=== PATIENT | female | born 1935 | race Hispanic/Latino ===

== ENCOUNTER → 2022-12-08 | Outpatient (CLI) | payer OTHER, MEDICARE | END | disposition home or self-care (01) | LOC: RAH 10:45 | PROVIDERS: ATTEND Internal Medicine | DX: H92.03 Otalgia, bilateral (principal); R51.9 Headache, unspecified | CPT/HCPCS: 70450 ==

== ENCOUNTER 2024-06-08 22:57 | Inpatient (IN) | payer OTHER, MEDICARE ==
[~2024-06-08] VITALS: Ht 152.4 cm; Wt 54.1 kg
[~2024-06-08 22:57] MED LIST: ACET-66 PO; OSEL75 PO
[2024-06-08] MEDS: Solu-medROL 125MG VIAL IVP ONE (23:02)
[2024-06-08] MEDS: DiphenhydrAMINE HCL 50 MG/ML VIAL IV ONE (23:02)
[2024-06-08] MEDS: FAMOTIDINE 20MG VIAL IV ONE (23:02)
[2024-06-08 23:10] LABS: BASOPHILS # (AUTO) 0.04 K/uL (0.00-0.20); BASOPHILS % (AUTO) 0.5 % (0.0-5.0); EOSINOPHILS # (AUTO) 0.34 K/uL (0.00-0.70); EOSINOPHILS % (AUTO) 3.9 % (0.0-8.0); HEMATOCRIT 37.7 % (36-48); IMMATURE GRANULOCYTE ABSOLUTE 0.03 K/uL (0-1); LYMPHOCYTES # (AUTO) 1.9 K/uL (1.0-4.8); LYMPHOCYTES % (AUTO) 21.3 % (21.0-51.0); MEAN CORPUSCULAR HEMOGLOBIN 30.3 pg (27.0-33.0); MEAN CORPUSCULAR HGB CONC 32.4 g/dL (32.0-36.0); MEAN CORPUSCULAR VOLUME 93.8 fL (79-99); MONOCYTES # (AUTO) 0.7 K/uL (0.1-1.0); MONOCYTES % (AUTO) 7.8 % (3.0-13.0); NEUTROPHILS # (AUTO) 5.9 K/uL (1.8-7.7); NEUTROPHILS % (AUTO) 66.2 % (40.0-77.0); PLATELET COUNT (AUTO) 411 K/uL (130-400); RED BLOOD CELL COUNT(AUTO) 4.02 MIL/uL (4.00-5.50); RED CELL DISTRIBUTION WIDTH 14.6 % (11.0-15.5); WHITE BLOOD COUNT (AUTO) 8.8 K/uL (4.8-10.8)
[2024-06-08] MEDS: 0.9%NACL 1000ML 1,000 ML IV ONE (23:11)
[2024-06-08] MEDS: ETOMIDATE 20MG VIAL IVP ONE (23:14)
[2024-06-08] MEDS: proPOFol 10 MG/ML 20ML VIAL IV ONE (23:15)
[2024-06-08] MEDS: SUCCINYLCHOLINE 200MG/10ML SYR IVP ONE (23:16)
[2024-06-08 23:21] LABS: CREATININE 0.9 mg/dL (0.5-1.0); POTASSIUM 4.5 mmol/L (3.5-5.1)
[2024-06-08 23:22] LABS: INR 1.03 (0.85-1.15); PROTHROMBIN TIME 11.1 SEC (9.6-11.6)
[2024-06-08 23:23] LABS: PARTIAL THROMBOPLASTIN TIME 27.1 SEC (26.3-35.5)
[2024-06-08 23:26] LABS: ALBUMIN 3.2 g/dL (3.5-5.0); BILIRUBIN,TOTAL 0.4 mg/dL (0.2-1.0)
[2024-06-08 23:27] VITALS: PULSE 73; O2SAT 98
[2024-06-08] MEDS ORDERED: proPOFol 1000 MG/100 ML IV PRN (23:30)
[2024-06-08 23:46] LABS: B-TYPE NATRIURETIC PEPTIDE 65 pg/mL (0-100)
[2024-06-09] VITALS (96 sets, daily range): BP systolic 91–153; BP diastolic 36–79; PULSE 71–105; RESP 10–19; TEMP 97.2–99.2; O2SAT 100
[2024-06-09] MEDS ORDERED: acetaMINOPHEN 650 MG SUPPOSITORY RC PRN
[2024-06-09] MEDS ORDERED: LACTULOSE 20 GM/30 ML UDCUP PO PRN
[2024-06-09] MEDS ORDERED: doCUSate SODIUM 100 MG CAP PO PRN
[2024-06-09] MEDS ORDERED: ALBUTEROL 0.083% 2.5 MG/3 ML INH IH PRN
[2024-06-09] MEDS ORDERED: hydrALAZine 20MG/ML VIAL IV PRN
[2024-06-09] MEDS ORDERED: ondanSETRON 4MG INJ IVP PRN
[2024-06-09] MEDS ORDERED: acetaMINOPHEN 325 MG TAB PO PRN
[2024-06-09] MEDS ORDERED: IpraTROPium 0.5 MG/2.5 ML INH IH PRN
[2024-06-09 00:07] LABS: APPEARANCE,URINE CLEAR (CLEAR); BILIRUBIN,URINE NEGATIVE (NEGATIVE); COLOR,URINE COLORLESS (YELLOW); GLUCOSE, URINE (UA) >=1000 mg/dL (NEGATIVE); KETONES,URINE NEGATIVE (NEGATIVE); LEUKOCYTE ESTERASE ,URINE NEGATIVE Leu/uL (NEGATIVE); NITRATE,URINE NEGATIVE (NEGATIVE); OCCULT BLOOD,URINE NEGATIVE (NEGATIVE); PROTEIN,URINE NEGATIVE (NEGATIVE); UROBILINOGEN,URINE 0.2 mg/dL (0.2-1.0)
[2024-06-09 00:08] LABS: ADD UA MICROSCOPIC YES
[2024-06-09 00:09] LABS: BACTERIA,URINE RARE /HPF (None Seen); WBC,URINE 0-1 /HPF (0-1)
[2024-06-09] MEDS: DiphenhydrAMINE HCL 50 MG/ML VIAL ONE (00:10)
[2024-06-09] MEDS: proPOFol 10 MG/ML 20ML VIAL IV ONE (00:10)
[2024-06-09] MEDS: proPOFol 1000 MG/100 ML 100 ML IV ONE (00:10)
[2024-06-09] MEDS: Solu-medROL 125MG VIAL ONE (00:10)
[2024-06-09] MEDS: FENTanyl 1000MCG+NS 100ML 100 ML IV ONE (00:24)
[2024-06-09] MEDS: proPOFol 1000 MG/100 ML 100 ML IV SCH (00:25)
[2024-06-09] MEDS: FENTanyl 1000MCG+NS 100ML 100 ML IV SCH (00:26)
[2024-06-09] MEDS: 0.9%NACL 1000ML 1,000 ML IV SCH ×2 (00:57→20:51)
[2024-06-09] MEDS: EPINEPHrine PF 1MG (1:1,000) 1 MG/ML AMP ONE (00:58)
[2024-06-09 01:27] LABS: ABG BASE EXCESS -9.6 mmol/L (-2.0-3.0); ABG HCO3 17.1 mmol/L (21.0-28.0); ABG OXYGEN SATURATION 98.3 % (94.0-98.0); ABG PCO2 40 mmHg (32-45); ABG PH 7.246 (7.350-7.450); CARBON MONOXIDE 0.3 % (0.5-1.5); HHb 1.7; PO2, ARTERIAL BG 152.9 mmHg (83.0-108.0); VENT MODE, BG ACVC (ROOM AIR)
[2024-06-09] MEDS ORDERED: CLOP75TA32 PO (03:15)
[2024-06-09] MEDS ORDERED: SITA100T12 PO (03:15)
[2024-06-09] MEDS ORDERED: RALO60TA13 PO (03:15)
[2024-06-09] MEDS ORDERED: LISI20TA24 PO (03:15)
[2024-06-09] MEDS ORDERED: DAPA10TA PO (03:15)
[2024-06-09] MEDS ORDERED: METF-444 PO (03:15)
[2024-06-09] MEDS ORDERED: AMLO-257 PO (03:15)
[2024-06-09] MEDS ORDERED: MELO-108 PO (03:15)
[2024-06-09] MEDS ORDERED: SIMV40TA59 PO (03:15)
[2024-06-09] MEDS ORDERED: FAMO40TA7 PO (03:15)
[2024-06-09 04:39] LABS: ABG BASE EXCESS -14.5 mmol/L (-2.0-3.0); ABG HCO3 16.8 mmol/L (21.0-28.0); ABG OXYGEN SATURATION 97.1 % (94.0-98.0); ABG PCO2 63 mmHg (32-45); ABG PH 7.046 (7.350-7.450); DEVICE COMMENT LR; PO2, ARTERIAL BG 130.8 mmHg (83.0-108.0); VENT MODE, BG AC (ROOM AIR)
[2024-06-09] MEDS: VASOpressin 20 UNITS/ML 1ML Vi 20 UNITS in 0.9%NACL 100ML 99 ML IV PRN (06:47)
[2024-06-09] MEDS: INSULIN GLARgine 100 UNITS/ML 10 ML VIAL SQ SCH ×2 (07:00→08:42)
[2024-06-09] MEDS: INSULIN humuLIN R 100 UNIT/ML 3ML SQ SCH (07:00)
[2024-06-09 07:04] LABS: ABG HCO3 13.7 mmol/L (21.0-28.0); ABG OXYGEN SATURATION 96.8 % (94.0-98.0); ABG PCO2 42 mmHg (32-45); ABG PH 7.129 (7.350-7.450); DEVICE COMMENT LRRAQUEL; PO2, ARTERIAL BG 114.4 mmHg (83.0-108.0); VENT MODE, BG AC (ROOM AIR)
[2024-06-09] MEDS ORDERED: INSULIN humuLIN R 100 UNIT/ML 3ML SQ SCH (07:30)
[2024-06-09 07:39] LABS: HEMATOCRIT 30.8 % (36-48); MEAN CORPUSCULAR HEMOGLOBIN 30.6 pg (27.0-33.0); MEAN CORPUSCULAR HGB CONC 30.8 g/dL (32.0-36.0); MEAN CORPUSCULAR VOLUME 99.4 fL (79-99); PLATELET COUNT (AUTO) 439 K/uL (130-400); RED CELL DISTRIBUTION WIDTH 14.9 % (11.0-15.5); WHITE BLOOD COUNT (AUTO) 14.5 K/uL (4.8-10.8)
[2024-06-09 08:17] LABS: HEMOGLOBIN A1C 7.9 % (4.0-6.0)
[2024-06-09 08:18] LABS: BASOPHILS # (AUTO) 0.03 K/uL (0.00-0.20); BASOPHILS % (AUTO) 0.2 % (0.0-5.0); EOSINOPHILS # (AUTO) 0.02 K/uL (0.00-0.70); EOSINOPHILS % (AUTO) 0.1 % (0.0-8.0); IMMATURE GRANULOCYTE ABSOLUTE 0.16 K/uL (0-1); LYMPHOCYTES # (AUTO) 1.1 K/uL (1.0-4.8); LYMPHOCYTES % (AUTO) 7.9 % (21.0-51.0); MONOCYTES # (AUTO) 0.4 K/uL (0.1-1.0); MONOCYTES % (AUTO) 2.9 % (3.0-13.0); NEUTROPHILS # (AUTO) 12.3 K/uL (1.8-7.7); NEUTROPHILS % (AUTO) 87.8 % (40.0-77.0)
[2024-06-09] MEDS: LACTATED RINGERS 1000ML IV ONE (08:34)
[2024-06-09 08:35] LABS: CREATININE 1.1 mg/dL (0.5-1.0); PHOSPHORUS 5.7 mg/dL (2.5-4.9); POTASSIUM 4.8 mmol/L (3.5-5.1); THYROID STIMULATING HORMONE 1.77 uIU/mL (0.36-3.74)
[2024-06-09] MEDS: SODIUM BICARB 50MEQ 50ML VIAL IV ONE (08:35)
[2024-06-09] MEDS: FAMOTIDINE 20MG VIAL IV SCH (08:40)
[2024-06-09] MEDS: cloPIDOgrel 75MG TAB PO SCH (08:40)
[2024-06-09] MEDS: Solu-medROL 40MG VIAL IVP SCH (08:40)
[2024-06-09] MEDS: ENOXAPARIN SODIUM 40 MG/0.4 ML SYRINGE SQ SCH (08:42)
[2024-06-09 08:45] LABS: MAGNESIUM 1.6 mg/dL (1.80-2.40)
[2024-06-09] MEDS: DiphenhydrAMINE HCL 50 MG/ML VIAL IVP SCH (08:46)
[2024-06-09] MEDS: CHLORHEXIDINE GLUCONATE 15 ML MOUTHWASH MM SCH (08:46)
[2024-06-09] MEDS: polyETHYLene GLYCol 3350 17 GM POWD.PACK PO SCH (08:46)
[2024-06-09] MEDS ORDERED: PoTASSium chloRIDE 10MEQ/100ML 100 ML IV PRN (09:00)
[2024-06-09] MEDS ORDERED: 0.9%NACL 1000ML 1,000 ML IV SCH (09:00)
[2024-06-09] MEDS ORDERED: Solu-medROL 125MG VIAL IVP SCH (09:00)
[2024-06-09] MEDS ORDERED: D5W-1/2 NS/20MEQ KCL 1,000 ML IV SCH (09:00)
[2024-06-09] MEDS ORDERED: FAMOTIDINE 20MG VIAL IV SCH (09:00)
[2024-06-09 09:08] LABS: ALBUMIN 2.7 g/dL (3.5-5.0); BILIRUBIN,DIRECT 0.7 mg/dL (0.0-0.3); BILIRUBIN,TOTAL 0.9 mg/dL (0.2-1.0); TOTAL PROTEIN, SERUM 6.4 g/dL (6.0-8.3)
[2024-06-09] MEDS ORDERED: MAGNESIUM 2GM PREMIX 50ML 50 ML IV SCH (10:00)
[2024-06-09] MEDS: INSULIN REGULAR, HUMAN 3ML 100 UNIT in 0.9%NACL 100ML 100 ML IV SCH (10:18)
[2024-06-09] MEDS: MAGNESIUM 2GM PREMIX 50ML 50 ML IV SCH (11:14)
[2024-06-09] MEDS: ARTIFICAL TEARS SOL 15 ML OU SCH (12:30)
[2024-06-09 13:23] LABS: CREATININE 1.1 mg/dL (0.5-1.0)
[2024-06-09 17:19] LABS: POTASSIUM 3.8 mmol/L (3.5-5.1)
[2024-06-09] MEDS: DOXYCYCLINE 100MG+NS 250ML 250 ML IV SCH (20:50)
[2024-06-09] MEDS: simVASTatin 20 MG TABLET PO SCH (20:50)
[2024-06-09] MEDS: ZOSYN 3.375GM +NS 50ML IV SCH (20:50)
[2024-06-10] VITALS (71 sets, daily range): BP systolic 104–188; BP diastolic 47–100; PULSE 71–120; RESP 12–128; TEMP 98.6–99.5; O2SAT 95–100
[2024-06-10 03:39] LABS: ABG BASE EXCESS -4.1 mmol/L (-2.0-3.0); ABG HCO3 20.2 mmol/L (21.0-28.0); ABG OXYGEN SATURATION 98.7 % (94.0-98.0); ABG PCO2 35 mmHg (32-45); ABG PH 7.381 (7.350-7.450); DEVICE COMMENT RR RN MARISSA; PO2, ARTERIAL BG 135.4 mmHg (83.0-108.0); VENT MODE, BG ACVC (ROOM AIR)
[2024-06-10 03:55] LABS: BASOPHILS # (AUTO) 0.02 K/uL (0.00-0.20); BASOPHILS % (AUTO) 0.1 % (0.0-5.0); HEMATOCRIT 30.7 % (36-48); IMMATURE GRANULOCYTE ABSOLUTE 0.18 K/uL (0-1); LYMPHOCYTES # (AUTO) 0.8 K/uL (1.0-4.8); LYMPHOCYTES % (AUTO) 3.5 % (21.0-51.0); MEAN CORPUSCULAR HEMOGLOBIN 30.7 pg (27.0-33.0); MEAN CORPUSCULAR HGB CONC 31.9 g/dL (32.0-36.0); MEAN CORPUSCULAR VOLUME 96.2 fL (79-99); MONOCYTES # (AUTO) 1.1 K/uL (0.1-1.0); MONOCYTES % (AUTO) 5.3 % (3.0-13.0); NEUTROPHILS # (AUTO) 19.1 K/uL (1.8-7.7); NEUTROPHILS % (AUTO) 90.2 % (40.0-77.0); PLATELET COUNT (AUTO) 352 K/uL (130-400); RED BLOOD CELL COUNT(AUTO) 3.19 MIL/uL (4.00-5.50); WHITE BLOOD COUNT (AUTO) 21.1 K/uL (4.8-10.8)
[2024-06-10 04:16] LABS: CREATININE 0.7 mg/dL (0.5-1.0); MAGNESIUM 2.2 mg/dL (1.80-2.40); PHOSPHORUS 3.4 mg/dL (2.5-4.9); POTASSIUM 4.3 mmol/L (3.5-5.1); THYROID STIMULATING HORMONE 0.72 uIU/mL (0.36-3.74)
[2024-06-10] MEDS: dexmedeTOMIDine 400MCG/NS100ML IV SCH (09:18)
[2024-06-10] MEDS: hydrALAZine 20MG/ML VIAL IV ONE (10:29)
[2024-06-10] MEDS: DEXTROSE 50%-WATER 50 ML DISP.SYRIN IV PRN (17:19)
[2024-06-10] MEDS ORDERED: GLUCAGON 1MG KIT 1 MG ML IM PRN (17:30)
[2024-06-10] MEDS: INSULIN humuLIN R 100 UNIT/ML 3ML SQ SCH (19:54)
[2024-06-10] MEDS: ZOLPidem TARTrate 5 MG TAB PO PRN (23:43)
[2024-06-11] VITALS (32 sets, daily range): BP systolic 121–161; BP diastolic 56–92; PULSE 56–85; RESP 11–27; TEMP 98.1–99.2; O2SAT 95–98
[2024-06-11 04:07] LABS: BASOPHILS # (AUTO) 0.01 K/uL (0.00-0.20); BASOPHILS % (AUTO) 0.1 % (0.0-5.0); HEMATOCRIT 29.2 % (36-48); IMMATURE GRANULOCYTE ABSOLUTE 0.21 K/uL (0-1); LYMPHOCYTES # (AUTO) 0.8 K/uL (1.0-4.8); LYMPHOCYTES % (AUTO) 4.6 % (21.0-51.0); MEAN CORPUSCULAR HEMOGLOBIN 29.6 pg (27.0-33.0); MEAN CORPUSCULAR HGB CONC 31.2 g/dL (32.0-36.0); MEAN CORPUSCULAR VOLUME 95.1 fL (79-99); MONOCYTES # (AUTO) 0.5 K/uL (0.1-1.0); MONOCYTES % (AUTO) 2.9 % (3.0-13.0); NEUTROPHILS # (AUTO) 15.5 K/uL (1.8-7.7); NEUTROPHILS % (AUTO) 91.2 % (40.0-77.0); PLATELET COUNT (AUTO) 270 K/uL (130-400); RED BLOOD CELL COUNT(AUTO) 3.07 MIL/uL (4.00-5.50); RED CELL DISTRIBUTION WIDTH 15.8 % (11.0-15.5)
[2024-06-11 04:18] LABS: CREATININE 0.6 mg/dL (0.5-1.0)
[2024-06-11] MEDS: Solu-medROL 40MG VIAL IVP SCH (08:39)
[2024-06-11] MEDS ORDERED: ZOLPidem TARTrate 5 MG TAB PO SCH (21:00)
[2024-06-12] VITALS: BP 127/65; PULSE 61; RESP 18; TEMP 98.3
[2024-06-12 00:06] VITALS: PULSE 75; RESP 18; O2SAT 96
[2024-06-12 04:00] VITALS: BP 119/55; PULSE 69; RESP 19; TEMP 98.1
[2024-06-12 05:23] LABS: BASOPHILS # (AUTO) 0.02 K/uL (0.00-0.20); BASOPHILS % (AUTO) 0.1 % (0.0-5.0); EOSINOPHILS # (AUTO) 0.01 K/uL (0.00-0.70); EOSINOPHILS % (AUTO) 0.1 % (0.0-8.0); HEMATOCRIT 30.7 % (36-48); IMMATURE GRANULOCYTE ABSOLUTE 0.14 K/uL (0-1); LYMPHOCYTES # (AUTO) 2.8 K/uL (1.0-4.8); LYMPHOCYTES % (AUTO) 16.6 % (21.0-51.0); MEAN CORPUSCULAR HEMOGLOBIN 30.5 pg (27.0-33.0); MEAN CORPUSCULAR HGB CONC 32.9 g/dL (32.0-36.0); MEAN CORPUSCULAR VOLUME 92.7 fL (79-99); MONOCYTES # (AUTO) 1.1 K/uL (0.1-1.0); MONOCYTES % (AUTO) 6.7 % (3.0-13.0); NEUTROPHILS # (AUTO) 12.7 K/uL (1.8-7.7); NEUTROPHILS % (AUTO) 75.7 % (40.0-77.0); PLATELET COUNT (AUTO) 324 K/uL (130-400); RED BLOOD CELL COUNT(AUTO) 3.31 MIL/uL (4.00-5.50); RED CELL DISTRIBUTION WIDTH 15.1 % (11.0-15.5); WHITE BLOOD COUNT (AUTO) 16.8 K/uL (4.8-10.8)
[2024-06-12 05:26] LABS: CREATININE 0.6 mg/dL (0.5-1.0); POTASSIUM 3.1 mmol/L (3.5-5.1)
[2024-06-12] MEDS ORDERED: PoTASSium chloRIDE 20MEQ ER 20 MEQ ERTAB PO PRN (06:30)
[2024-06-12] MEDS ORDERED: PoTASSium chl 10% ELIXIR 20MEQ 20 MEQ/15 ML UDCUP PO PRN (06:30)
[2024-06-12] MEDS ORDERED: PoTASSium chloRIDE 20MEQ/100ML 100 ML IV PRN (06:30)
[2024-06-12] MEDS ORDERED: MAGNESIUM 2GM PREMIX 50ML 50 ML IV PRN (06:30)
[2024-06-12 06:55] VITALS: PULSE 65; RESP 14; O2SAT 96
[2024-06-12 08:00] VITALS: BP 147/64; PULSE 65; RESP 18; TEMP 97.8; O2SAT 98
[2024-06-12 12:00] VITALS: BP 149/63; PULSE 73; RESP 18; TEMP 98.2
[2024-06-12 15:14] LABS: C1 INHIBITOR FUNCTIONAL >110 (.)
== END 2024-06-12 14:20 | disposition home or self-care (01) | DRG 915 ==
LOC: EDH 22:57 → EDHIP 23:57 → 2BH 06-09 02:20 → 3CH 06-11 11:04
PROVIDERS: ADMIT Hospitalist; ATTEND Hospitalist
PROC: 5A1945Z Respiratory Ventilation, 24-96 Consecutive Hours (ICD-10-PCS; principal; 2024-06-08)
PROC: 0BH17EZ Insertion of Endotracheal Airway into Trachea, Via Natural or Artificial Opening (ICD-10-PCS; 2024-06-08)
PROC: 30233L1 Transfusion of Nonautologous Fresh Plasma into Peripheral Vein, Percutaneous Approach (ICD-10-PCS; 2024-06-08)
PROC: 02HV33Z Insertion of Infusion Device into Superior Vena Cava, Percutaneous Approach (ICD-10-PCS; 2024-06-09)
PROC: B548ZZA Ultrasonography of Superior Vena Cava, Guidance (ICD-10-PCS; 2024-06-09)
DX: T78.3XXA Angioneurotic edema, initial encounter (principal); E11.10 Type 2 diabetes mellitus with ketoacidosis without coma; J69.0 Pneumonitis due to inhalation of food and vomit; J96.01 Acute respiratory failure with hypoxia; T78.2XXA Anaphylactic shock, unspecified, initial encounter; N17.9 Acute kidney failure, unspecified; R74.01 Elevation of levels of liver transaminase levels; E88.09 Other disorders of plasma-protein metabolism, not elsewhere classified; E11.65 Type 2 diabetes mellitus with hyperglycemia; I95.9 Hypotension, unspecified; I10 Essential (primary) hypertension; E78.00 Pure hypercholesterolemia, unspecified; D75.839 Thrombocytosis, unspecified; Z90.49 Acquired absence of other specified parts of digestive tract; E87.6 Hypokalemia; Z90.710 Acquired absence of both cervix and uterus; Z79.899 Other long term (current) drug therapy; Z88.8 Allergy status to other drugs, medicaments and biological substances; Y92.89 Other specified places as the place of occurrence of the external cause
CPT/HCPCS: 31500; 36415; 36430; 36556; 36600; 71045; 80048; 80053; 80076; 81001; 82010; 82435; 82803; 82947; 82948; 83036; 83605; 83735; 83880; 84100; 84132; 84145; 84295; 84443; 85018; 85025; 85610; 85730; 86160; 86161; 86850; 86900; 86901; 86927; 87040; 87071; 87205; 94002; 94003; 94150; 96374; 96375; C1751; C1894; G0378; J0171; J0330; J0360; J1200; J1650; J1815; J2543; J2704; J2919; J3010; J3475; J3490; J7030; J7050; J7070; P9017; A9900